=== PATIENT | male | born 1980 | race Caucasian/White ===

== ENCOUNTER 2020-11-12 13:14 | Outpatient (RCR) | payer MEDICAID, SELFPAY ==
--- NOTE | 2020-11-17 07:48 | HP.FCE ---
Floor (Occasional 1-33% of Day): 45# Floor (Frequent 34-66% of Day): 22# Floor (Constant 67-100% of Day): NA Floor PDL: Light-Medium Knee (Occasional 1-33% of Day): 35# Knee (Frequent 34-66% of Day): 18# Knee (Constant 67-100% of Day): NA Knee PDL: Light-Medium Waist (Occasional 1-33% of Day): 35# Waist (Frequent 34-66% of Day): 18# Waist (Constant 67-100% of Day): NA Waist PDL: Light-Medium Shoulder (Occasional 1-33% of Day): 30# Shoulder (Frequent 34-66% of Day): 15# Shoulder (Constant 67-100% of Day): NA Shoulder PDL: Light Overhead (Occasional 1-33% of Day): 20# Overhead (Frequent 34-66% of Day): 10# Overhead (Constant 67-100% of Day): NA Overhead PDL: Sedentary Comments: pt used a back brace throughout session. pt demo good lifting mechanics with each lift levels. Bending: Occasional Ability (1-33% of day) Comments: with use of back brace Squatting: Occasional Ability (1-33% of day) Comments: low occasional ability with use of back brace Kneeling: Occasional Ability (1-33% of day) Reaching out: Frequent Ability (34-66% of day) Reaching up: Frequent Ability (34-66% of day) Sitting: Frequent Ability (34-66% of day) Walking: Occasional Ability (1-33% of day) Standing: Occasional Ability (1-33% of day) Duration Sedentary Sedentary Light Light Light Medium Medium Medium Heavy Very Heavy Heavy Occasional (0-33% of day) Frequent (34-66% of day) Constant (67-100% of day) 10 # Negligible Negligible 15 # 8 # Negligible 20 # 10# Negli. 35 # 18 # 7 # 50 # 25 # 10 # 75 # 100 # >100 # 38 # 50 # >50 # 15 # 20 # >20 # Weight:: 159.665 kg Hand Dominance: Right Medical History Including Restrictions: Pt states in 2002 he was dx with OA left knee and back by the [employer]- pt states he mtg this with Medication. pt states with anxiety and depression is mtg by Medication - pt states does see [facility] to assist him with this depression and medication - pt states he tasks medication daily- pt states his DMII is mtg with medication only-. pt states with his lumbar stenosis he sees a [place] primary care Dr. pt states he did see a dr for pain and had injection. pt states he did see physical therapy for 6-8 weeks but did not help with his pain. pt admits he was told he would benefit from spine sx but feels it is to risky and is avoiding the surgery. pt ambulates with rollator. pt does not exercise. pt states he has not been given lifting restrictions. Diagnoses: lumbar disc herniation dx 2002. Anxiety dx 2017. Neural foraminal stenosis of lumbosacral spine dx about 3-4 years ago. Depression dx 2017. Neurogenic calaudication due to lumbar spinal stenosis dx about 3-4 years ago. left knee sx 2000. DM II dx . Hypertension dx Symptoms: Pain from low back down both legs. radiculopathy. Neuropathy hands/feet. left knee pain Pain: pt states he is currently 06/27 with medication. list of current medication. gabapentin 300mg , duloxetine 30mg, Famotidine 20mg, Tamsulosin .4mg, [id number], Acetaminophen 323mg, Alogliptin Benzoata 25mg, Amlodipine Besylate 10mg, metformin 1000mg, lisinopril 10mg, glipizide 10mg. see notes for further medication or dx. and hx on pt. Work History: pt states he was in the [employer] until he was medical discharge in 2002. 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 states he has not worked for 15 years he tried to work for [employer] in 2003 but quit after 2 days because of his back. Pt states he was placed on disability in 2002 with and gets some income from that disability. pt has concerns with his back and knee limiting his work with lifting, twisting or work where he is standing for long periods of time. pt did not verbalize seeking employment with less physical strain. Behavioral: pt was cooperative throughout session. pt unclear on what year he was dx with the above but appeared to provide appropriate feedback to questions. ADLS: pt ambulates with rollator. lives with his parents in a ranch home with 12 steps or flight to basement- (pt does have to go down to use bathroom). pt states he is mostly on main floor and he uses toilet in basement and bathtub on main floor- pt states he can perform bathing/dressing IND. pt states his family does the dishes- pt states his chore is to gather trash and burn it- mow yard once or twice a month- pt states he does need to take rest beaks when doing these chores. pt states he does weed wacking trim and his dad mows the grass when he can not. pt states he does grocery shopping with motorized cart- pt does not drive he does not have a license. pt states he does his laundry and the laundry room is in the basement- pt states he sometimes helps with cooking. pt states his mom does not cook anymore. Physical Examination: 100 resting heart rate. pt heart rate ranged from 90-146 throughout the assessment. pt participated in assessment with back brace on. would recommend review of pt. physical therapy notes and pts PMH from his doctor. ROM: pt demo with ROM slight limitation with lumbar extension. lumbar flexion 80*. BUE ROM WNL. BLE ROM WNL. (pt did have back brace on) Strength: MMT BUE 4+/5. MMT SIVA 4+/5. pt demo with good strength grossly throughout Right Charge Master Coordinator Strength Average: 103.33 Right Charge Master Coordinator Strength Percentile: 28% Left Charge Master Coordinator Strength Average: 93.33 Left Charge Master Coordinator Strength Percentile: 19% Right Lateral Pinch Average: 17.33 Right Lateral Pinch Percentile: 10% Left Lateral Pinch Average: 12.00 Left Lateral Pinch Percentile: <10% Right Tripod Pinch Average: 10.00 Right Tripod Pinch Percentile: <10% Left Tripod Pinch Average: 10.00 Left Tripod Pinch Percentile: <10% Sensation: [place] sensory testing. right hand 2.83 = interpretation =Normal. left hand 2.83 = interpretation = Normal Fine Motor: 9 hole peg test. right 28. seconds =0%. left 23.0 seconds = 25% Balance: pt demonstrated good balance no noted LOB during assessment Bending: pt demonstrated the ability to bend forward 3/3, (heart rate 121) 10/10 pt states back pain increased from 3/10/ to 5/10. pt unable to perform 10 times rapidly- pt did have a back brace on during the assessment. heart rate 116. pt can bend forward on a occasional ability Squatting: pt demonstrated the ability to squat 3/3 times and reported bilateral knee pain and right ankle 4/10 pain - pt unable to perform 10/10 or 10/10 rapidly. pt can squat on a low occasional ability with back brace on. Kneeling: pt demonstrate the ability to kneel 2/3 times, pts heart rate 112. pt unable to perform more. pt states pain in back and bilateral knees increased to 4/10, pt performed this activity with use of external support and back brace on. pt can kneel on a low occasional ability. Reaching out/up: pt demonstrated the ability to reach up/out 3/3, 10/10 and 10/10 rapidly. heart rate 111. pt completed this task standing. pt can reach up/out on a frequent ability Walking: pt demonstrated the ability to ambulate in the department 300 feet with use of rollator with good ability. pt used rollator during assessment and ambulation of 7 min prior to getting on the treadmill. pt ambulates with rollator used a reciprocal gait pattern with good pace. pt ambulated on treadmill for 8 min with holding on to handles and leaning forward on treadmill. he ambulating with a reciprocal gait pattern at .08 speed. pt reported back pain 5/10 and request to stop-. pt can ambulate on a occasional ability with use of rollator and use of his back brace. Standing: pt demonstrated the ability to stand for 8 min with no apparent or expressed discomfort- pt did shift weight from side to side- pt can stand on an occasional ability. with back brace on. Sitting: pt demonstrated the ability to sit for 30 min with no apparent or expressed discomfort- pt can sit on a frequent ability with back brace on. Climbing Stairs: pt demonstrate the ability to descend and ascend 10 steps with a reciprocal step pattern and use of hand rail and back brace on. pt demo. good ability. Floor Lift: pt demonstrated the ability to lift 45# maximally from floor level. heart rate was 111 following. pt demo good lifting mechanics and had his back brace on for lift. Light Medium physical demand level. Knee Lift: pt demonstrated the ability to lift 35# maximally from knee level. heart rate was 111 following. pt demo good lifting mechanics and had his back brace on for lift. Light Medium physical demand level Waist Lift: pt demonstrated the ability to lift 35# maximally from waist eval. pt demo good lifting mechanics and had his back brace on for lift. Light Medium physical demand level Shoulder Lift: pt demonstrated the ability to lift 30# maximally from shoulder level. pt demo good lifting mechanics and had his back brace on for lift. pt reported he could feel a strain on back with this level of lift. Light physical demand level Overhead Lift: pt demonstrated the ability to lift 20# maximally from overhead level with good lifting mechanics. Light physical demand level Carrying: pt demonstrated the ability carry 30# for 40 feet with good ability. Heart rate 146 Comments: pt demo with good lifting mechanics and reported 4/10 pain generalized to back and knees. pt did have back brace on the entire assessment.
--- NOTE | 2020-11-17 07:48 | HP.OTFCE.D ---
FCE D/C Summary - Discharge SHIRLEY HERRING was seen for a one time visit for an FCE on 11/12/20 and is discharged.
== END 2020-11-12 19:00 | disposition home or self-care (01) ==
LOC: OT 13:14
PROVIDERS: PCP Nurse Practitioner Family; Referring Provider Nurse Practitioner Family; Visit Provider Nurse Practitioner Family
DX: M48.07 Spinal stenosis, lumbosacral region (principal)
CPT/HCPCS: 97750